=== PATIENT | male | born 1995 ===

== ENCOUNTER 2017-04-18 15:40 | Emergency (ER) | payer OTHER ==
[2017-04-18 16:00] VITALS: BP 118/66; PULSE 75; RESP 20; TEMP 98.6; O2SAT 100
--- NOTE | 2017-04-18 17:29 | ED PDOC ---
HPI: Abdomen Time Seen by Provider: 04/18/17 16:51 Chief Complaint (Nursing): Abdominal Pain Chief Complaint (Provider): Abdominal Pain History Per: Patient History/Exam Limitations: no limitations Onset/Duration Of Symptoms: Hrs Current Symptoms Are (Timing): Gone Now Additional Complaint(s): Preet Gordon is a 22 year old male with no medical problems that presents to the ED with a chief complaint of nausea and vomiting that began when he woke up around 8:00 AM this morning. Patient reports that he ate cereal for breakfast but vomited almost immediately after. He denies any current pain, discomfort, or fever. Of Note: Patient reports that he went out to eat last night. Past Medical History Reviewed: Historical Data, Nursing Documentation, Vital Signs Vital Signs: Last Vital Signs Temp 98.6 F 04/18/17 15:57 Pulse 75 04/18/17 15:57 Resp 20 04/18/17 15:57 BP 118/66 04/18/17 15:57 Pulse Ox 100 04/18/17 17:37 - Family History Family History: States: Unknown Family Hx - Allergies Allergies/Adverse Reactions: Allergies Allergy/AdvReac Type Severity Reaction Status Date / Time No Known Allergies Allergy Verified 04/18/17 15:56 Review of Systems Constitutional: Negative for: Fever Gastrointestinal: Positive for: Nausea (currently gone), Vomiting (x1 episode) Physical Exam - Reviewed Nursing Documentation Reviewed: Yes Vital Signs Reviewed: Yes - Physical Exam Appears: Positive for: Non-toxic, No Acute Distress Head Exam: Positive for: ATRAUMATIC, NORMOCEPHALIC Skin: Positive for: Normal Color, Warm Eye Exam: Positive for: Normal appearance, EOMI, PERRL Cardiovascular/Chest: Positive for: Regular Rate, Rhythm. Negative for: Murmur Respiratory: Positive for: Normal Breath Sounds. Negative for: Wheezing Gastrointestinal/Abdominal: Positive for: Soft. Negative for: Tenderness Neurologic/Psych: Positive for: Alert, Oriented - ECG O2 Sat by Pulse Oximetry: 100 (RA) Pulse Ox Interpretation: Normal Medical Decision Making Medical Decision Making: Impression: Normal Exam Plan: * Patient states that he only came to ED for work note because he missed appointment earlier today for parole. Patient's PE normal, stable for discharge home. Scribe Attestation: Documented by Puja Rojas, acting as a scribe for Tawny Can PA-C. Provider Scribe Attestation: All medical record entries made by the Scribe were at my direction and personally dictated by me. I have reviewed the chart and agree that the record accurately reflects my personal performance of the history, physical exam, medical decision making, and the department course for this patient. I have also personally directed, reviewed, and agree with the discharge instructions and disposition. Disposition - Clinical Impression Clinical Impression: Normal exam - Disposition Referrals: [facility] [Outside] Disposition: Routine/Home Disposition Time: 17:26 Condition: STABLE Instructions: Abdominal Pain (ED) Forms: [facility] ED School/Work Excuse
== END 2017-04-18 18:07 | disposition home or self-care (01) ==
LOC: H.ER 15:40
DX: R10.9 Unspecified abdominal pain (principal); R11.2 Nausea with vomiting, unspecified